=== PATIENT | male | born 1950 | race Caucasian/White ===

== ENCOUNTER 2017-04-19 05:12 | Inpatient (IN) | payer OTHER ==
[2017-04-04 09:31] VITALS: Ht 172.7 cm; Wt 100.0 kg
--- NOTE | 2017-04-04 09:55 | PAT Medication Instructions ---
Service Date Apr 04, 2017. Current Home Medication List Aspirin (Aspirin Ec), 650-975 MG PO PRN Lisinopril (Zestril), 20 MG PO QAM Metformin Hcl (Glucophage), 500 MG PO BID Multivitamin (Multivitamin), 1 TAB PO for AM [Vitamin B12], 1 TAB PO QAM [Vitamin E], 1 TAB PO QAM Medication Instructions For Your Scheduled Surgery - Hold the following medications 2 weeks prior to surgery: [Vitamin E], 1 TAB PO QAM - Hold the following medications 7 days prior to surgery per your surgeon's instructions: Aspirin (Aspirin Ec), 650-975 MG PO PRN - Hold the following medications 48 hours prior to surgery: Metformin Hcl (Glucophage), 500 MG PO BID - Hold the following medications the morning of surgery: [Vitamin B12], 1 TAB PO QAM Lisinopril (Zestril), 20 MG PO QAM Multivitamin (Multivitamin), 1 TAB PO for AM If you have any questions please call us at [phone] or [phone] or [phone]
--- NOTE | 2017-04-04 10:39 | DIAGNOSTIC IMAGING REPORT ---
CHEST 2 VIEWS ROUTINE HISTORY: 66 years-old Male PAT preoperative exam. COMPARISON: Chest radiographs 02/24/2013 TECHNIQUE: PA and lateral views of the chest FINDINGS: Cardiac silhouette is mildly enlarged. Atherosclerosis of the aorta. There is no pneumothorax, pleural effusion or focal airspace consolidation. Diaphragmatic flattening is noted with linear subsegmental bibasilar opacities. Bones of the chest are grossly intact. Advanced degenerative changes about the right shoulder. Multilevel endplate spurring of the spine. IMPRESSION: Subsegmental bibasilar atelectasis without acute process. The above report was generated using voice recognition software. It may contain grammatical, syntax or spelling errors. Electronically signed by: Scott White M.D. 04/04/2017 10:38 AM Dictated Date/Time: 04/04/2017 10:36 AM
[2017-04-04 11:25] LABS: PTT PATIENT 27.8 SECONDS (21.0-31.0)
--- NOTE | 2017-04-18 09:27 | History and Physical ---
History & Physical Date Apr 18, 2017. Chief Complaint Patient presents as a 66-year-old white male with ongoing complaints of pain about his right shoulder been unresponsive conservative therapy including injections anti-inflammatories relative rest activity modification as well as DJD presents for resurfacing Tournier and knee arthroplasty versus resurfacing arthroplasty versus total shoulder arthroplasty History of Present Illness The patient is a 66 year old male with complaints of ongoing pain was right shoulder Nourse wants to injections as well as viscous supplementations and anti -inflammatories corticosteroid injections Additional History Hepatic Disease: No Endocrine Disorder: No Kidney Disease: No Hypertension: Yes Heart Disease: No Bleeding Tendencies: No Infectious Diseases: No Allergies Coded Allergies: No Known Allergies (Verified , `, 04/04/17) Home Medications Scheduled Aspirin (Aspirin Ec), 650-975 MG PO PRN Lisinopril (Zestril), 20 MG PO QAM Metformin Hcl (Glucophage), 500 MG PO BID [Vitamin B12], 1 TAB PO QAM [Vitamin E], 1 TAB PO QAM Scheduled PRN Multivitamin (Multivitamin), 1 TAB PO for AM Physical Examination Skin: warm/dry, no rash Eyes: normal inspection, EOMI, sclerae normal ENT: normal ENT inspection, pharynx normal Head: normocephalic, atraumatic Neck: supple, no adenopathy, trachea midline Respiratory/Chest: lungs clear, normal breath sounds, no respiratory distress Cardiovascular: regular rate, rhythm, no edema, no murmur Abdomen / GI: normal bowel sounds, non tender Back: normal inspection Extremities: + pertinent finding (ongoing right shoulder pain with glenohumeral DJD) Neurologic/Psych: no motor/sensory deficits, alert, normal reflexes, oriented x 3 Diagnosis Glenohumeral DJD right shoulder Nourse wants to conservative therapy including injections anti-inflammatories relative rest activity modification Plan of Treatment Plans for right shoulder resurfacing arthroplasty versus hemiarthroplasty versus total shoulder arthroplasty pending findings at time of surgery
[2017-04-19] VITALS (9 sets, daily range): BP systolic 100–141; BP diastolic 57–84; PULSE 55–79; TEMP 36.3–37.1; O2SAT 94–97
[~2017-04-19] VITALS: Ht 172.7 cm; Wt 100.0 kg
[~2017-04-19 05:12] MED LIST: ASPI325T39 PO; GLC/500 PO; LISI-725 PO; MULT-506 PO; VITAMIN B12 PO; VITAMIN E PO
[2017-04-19] MEDS ORDERED: ROPIVACAINE 5MG/ML 30 ML 150 MG, BUPIVACAINE 0.5% MPF INJ 30 ML, EpINEphrine HCL INJ 0.... INFIL SCH ×8 (06:00)
[2017-04-19] MEDS ORDERED: GABAPENTIN 300 MG CAP PO SCH (06:00)
[2017-04-19] MEDS ORDERED: CEFAZOLIN 2000MG IV PUSH 15 ML IV SCH (06:00)
[2017-04-19] MEDS ORDERED: FAMOTIDINE 20 MG TAB PO SCH (06:00)
[2017-04-19] MEDS ORDERED: CeleBREX 200 MG CAP PO SCH (06:00)
[2017-04-19] MEDS ORDERED: ACETAMINOPHEN 500 MG TAB PO SCH (06:00)
[2017-04-19] MEDS ORDERED: METOCLOPRAMIDE HCL 10 MG TAB PO SCH (06:00)
[2017-04-19] MEDS ORDERED: DEXAMETHASONE 4 MG TAB PO SCH (06:00)
[2017-04-19] MEDS ORDERED: LACTATED RINGER'S 1000ML 1,000 ML IV SCH (06:00)
[2017-04-19] MEDS ORDERED: BUPIVACAINE 0.5 % 5 MG/1 ML PF 10ML VIAL ONE (06:34)
[2017-04-19] MEDS ORDERED: ROPIVACAINE 0.5% 5 MG/ML 30 ML VIAL ONE (06:38)
[2017-04-19] MEDS ORDERED: LIDOCAINE HCL 2% 2 ML VIAL (20MG/ML) ONE (06:45)
[2017-04-19] MEDS ORDERED: ONDANSETRON INJ 2 MG/ML 2 ML VIAL ONE (06:45)
[2017-04-19] MEDS ORDERED: MIDAZOLAM HCL 1 MG/ML 2ML VIAL ONE (06:45)
[2017-04-19] MEDS ORDERED: DEXAMETHASONE SOD INJ 4 MG/ML VIAL ONE (06:45)
[2017-04-19] MEDS ORDERED: ROCURONIUM BROMIDE 10 MG/ML 5 ML VIAL IV ONE (06:45)
[2017-04-19] MEDS ORDERED: FENTANYL CITRATE INJ 50 MCG/1 ML 2 ML VIAL ONE (06:45)
[2017-04-19] MEDS ORDERED: PROPOFOL IV EMULSION 10 MG/ML 20 ML VIAL IV ONE (06:45)
[2017-04-19] MEDS ORDERED: THROMBIN FOR SOLN 20000 UNIT KIT ONE (06:55)
[2017-04-19] MEDS ORDERED: BACITRACIN 50000 UNIT VIAL ONE (06:55)
[2017-04-19] MEDS: TRANEXAMIC ACID INJ 1,000 MG in SYRINGE 0 ML IV SCH ×2 (07:00→11:58)
--- NOTE | 2017-04-19 07:12 | History & Physical Bridge Note ---
H&P Re-Evaluation Bridge Note: I have examined the patient, reviewed the History & Physical and in the interval since the performance of the History & Physical I have noted the following changes of clinical significance: No changes noted
--- NOTE | 2017-04-19 07:20 | History & Physical Bridge Note ---
H&P Re-Evaluation Bridge Note: I have examined the patient, reviewed the History & Physical and in the interval since the performance of the History & Physical I have noted the following changes of clinical significance: Please note the procedure is right shoulder arthroplasty
[2017-04-19] MEDS ORDERED: EpHEDrine SULFATE INJ 50 MG/ML AMP ONE (07:39)
[2017-04-19] MEDS ORDERED: ATROPINE SULFATE 0.1 MG/ML 5ML SYR IV PRN (07:45)
[2017-04-19] MEDS ORDERED: FENTANYL CITRATE INJ 50 MCG/1 ML 2 ML VIAL IV PRN (07:45)
[2017-04-19] MEDS ORDERED: ONDANSETRON INJ 2 MG/ML 2 ML VIAL IV PRN ×2 (07:45→09:15)
[2017-04-19] MEDS ORDERED: EpHEDrine SULFATE INJ 50 MG/ML AMP IV PRN (07:45)
[2017-04-19] MEDS ORDERED: PHENYLEPHRINE 100MCG/ML 5ML SYR ONE (07:50)
[2017-04-19] MEDS ORDERED: NEOSTIGMINE METHYLSULFATE 5 MG/5 ML SYR ONE (08:44)
[2017-04-19] MEDS ORDERED: GLYCOPYRROLATE INJ 0.2 MG/ML VIAL ONE (08:44)
--- NOTE | 2017-04-19 08:49 | [facility] Post Operative Brief Note ---
Immediate Operative Summary Operative Date Apr 19, 2017. Pre-Operative Diagnosis Glenohumeral degenerative joint disease right shoulder Post-Operative Diagnosis Glenohumeral degenerative joint disease right shoulder Procedure(s) Performed Right Shoulder Arthroplasty Resurfacing Surgeon Dr. Lencho Wiley Service Promoter Salesperson Surgeon(s) Chi To PA-C Estimated Blood Loss 15ml Findings Consistent with Post-Op Diagnosis Specimens None per surgeon Drains None Anesthesia Type General Complication(s) none Disposition Disposition: Recovery Room / PACU
--- NOTE | 2017-04-19 08:52 | [facility] Operative Report ---
Operative Report Operative Date Apr 19, 2017. Pre-Operative Diagnosis Glenohumeral degenerative joint disease right shoulder Post-Operative Diagnosis Glenohumeral degenerative joint disease right shoulder Procedure(s) Performed Right Shoulder Arthroplasty Resurfacing utilizing Tournier resurfacing hemiarthroplasty size 46 x 17 mm press-fit Surgeon Dr. Lencho Wiley Pierce And Shave Press Operator Surgeon(s) Chi To PA-C Estimated Blood Loss 15ml Findings Patient presents with glenohumeral arthritis primarily involving the the humeral head with marginal osteophytes the procedure resurfacing was noted gave excellent conformity of reduction excellent stability range of motion anatomic range Specimens None per surgeon Drains None Anesthesia Type General Complication(s) none Disposition Recovery Room / PACU Indications Patient presents with ongoing arthritic complaints and DJD about the right shoulder Nourse wants to conservative therapy including injections viscous supplementations relative rest activity modification patient presents for shoulder resurfacing arthroplasty Description of Procedure After after proper prepping and draping the right shoulder region and injured ( oval incision was made the cephalic vein was protected all times the pectoral was developed anterior subscapularis surface was reflected off of the humeral head and the joint was evaluated the glenoid was evaluated in good condition he recommended marginal osteophytes around the entire humeral head was were excised the Yaron eburnated bone the head was sized to a 46 x 17 and was subsequently reamed gave excellent stability after reduced loser as well as sterile saline solution via pulsatile lavage 3 #5 FiberWire was replaced through transosseous bone tunnels placed through the anterior humeral head for later repair of the subscapularis tendon after trialing process instability status post glenoid incision made the glenoid was left as is subsequently the resurfacing arthroplasty was press-fit into position after patient placing the 5 -0 FiberWire sutures anterior subscapularis tendon and supraspinatus rotator interval was repaired as well utilizing #0 Ethibond was irrigated with copious less of sterile saline solution the pectoral was closed with #2-0 Vicryl subcutaneous screws with a 2-0 Vicryl skin was closed skin clips a sterile compressive dressing was placed as well as a shoulder immobilizer patient states recovery in stable condition operative report dictated by Saurabh YEUNG was necessary for prepping draping retraction and closure defect is subcutaneous and skin was necessary for the case I attest to the content of the Intraoperative Record and any orders documented therein. Any exceptions are noted below.
[2017-04-19] MEDS ORDERED: OXYCODONE HCL IR 5 MG TAB (IMMEDIATE RELEASE) PO PRN (09:15)
[2017-04-19] MEDS ORDERED: MAGNESIUM HYDROXIDE SUSP 30 ML UDC PO PRN (09:15)
[2017-04-19] MEDS ORDERED: BISACODYL 10 MG SUPP PR PRN (09:15)
[2017-04-19] MEDS ORDERED: MoRPHine SULFATE 2 MG/ML CARP IV PRN (09:15)
[2017-04-19] MEDS ORDERED: SOD PHOSPHATE/SOD BIPHOSPHATE ENEMA 132 ML BTL PR PRN (09:15)
[2017-04-19] MEDS ORDERED: ALUMINUM/MAGNESIUM SUSP 30 ML UDC PO PRN (09:15)
[2017-04-19] MEDS ORDERED: CEFAZOLIN IV 2,000 MG in DEXTROSE 5% 50ML 50 ML IV SCH (09:15)
[2017-04-19] MEDS ORDERED: ZOLPIDEM TARTRATE 5 MG TAB PO PRN (09:15)
[2017-04-19] MEDS ORDERED: LABETALOL HCL IV 5 MG/ML 20ML IV ONE (09:19)
--- NOTE | 2017-04-19 09:45 | DIAGNOSTIC IMAGING REPORT ---
R SHOULDER MIN 2 VIEWS ROUTINE CLINICAL HISTORY: Post shoulder surgery shoulder arthroplasty COMPARISON: None. DISCUSSION: Anatomic alignment status post right shoulder hemiarthroplasty. Good contact between the humeral prosthetic and underlying bone. Expected soft tissue postoperative change. IMPRESSION: Anatomic alignment status post right shoulder arthroplasty. The above report was generated using voice recognition software. It may contain grammatical, syntax or spelling errors. Electronically signed by: Chi Parada M.D. 04/19/2017 9:43 AM Dictated Date/Time: 04/19/2017 9:43 AM
--- NOTE | 2017-04-19 10:00 | Anesthesiology Progress Note ---
Anesthesia Post Op Note Date & Time Apr 19, 2017 at 10:00 Vital Signs Pain Intensity: 0 Vital Signs Past 12 Hours Date Time Temp Pulse Resp B/P (MAP) Pulse Ox O2 Delivery O2 Flow Rate FiO2 04/19/17 09:55 36.0 55 16 100/60 96 Nasal Cannula 2 04/19/17 09:45 59 16 101/61 96 Nasal Cannula 2 04/19/17 09:35 56 16 105/65 96 Oxymask 10 04/19/17 09:25 58 16 109/66 96 Oxymask 10 04/19/17 09:15 36.0 65 16 111/68 96 Oxymask 10 04/19/17 05:52 37.1 70 16 141/84 97 Room Air Notes Mental Status: alert / awake / arousable, participated in evaluation Pt Amnestic to Procedure: Yes Nausea / Vomiting: adequately controlled Pain: adequately controlled Airway Patency, RR, SpO2: stable & adequate BP & HR: stable & adequate Hydration State: stable & adequate Anesthetic Complications: no major complications apparent
[2017-04-19] MEDS ORDERED: MoRPHine SULFATE 4 MG/ML 1 ML CARP\\VIAL IV PRN (10:15)
[2017-04-19] MEDS ORDERED: PHARMACY GLYCEMIC MGMT CONSULT PRN (10:30)
[2017-04-19] MEDS ORDERED: MoRPHine SULFATE 10 MG/ML CARP/VIAL IV PRN (10:30)
[2017-04-19] MEDS ORDERED: INSULIN GLARGINE SOLOSTAR 100 UNITS/ML 3 ML PEN SC ONE (11:00)
--- NOTE | 2017-04-19 11:07 | Pharmacy Progress Note ---
Glycemic Control Intl Consult Date of Service Apr 19, 2017. Scope Glycemic Pharmacist consulted by Stefan To PA-C on 04/19/17 for glycemic control and to write orders per [facility] inpatient glycemic control protocol Objective Weight (Kilograms): 100.2 Accuchecks BSG (last 24hrs): Test 04/19/17 05:46 04/19/17 09:22 Bedside Glucose 148 mg/dl (70-99) 215 mg/dl (70-99) Recent Pertinent Medications Outpatient Anti-diabetic Regimen: * metformin 500 mg BID * A1c unknown Risk Factors for Insulin Resistance: * Steroids: ortho + dexamethasone 8 mg PO + dexamethasone 4 mg IV pre-op * Recent Surgery: POD #0 R shoulder arthroplasty vs. resurfacing * Diet: T2DM Assessment & Plan ASSESSMENT: * 66 yr old T2DM male admitting for R shoulder surgery. * Pt is maintained on oral antidiabetic agents as an outpatient with unknown glycemic control. * Will hold oral agents for admission and utilize SQ basal bolus insulin regimen which is the recommended regimen for inpatient glycemic control. * Will initiate weight based insulin dosing for insulin nathalie patient and titrate based on BSG trends. PLAN FOR INPATIENT GLYCEMIC CONTROL: * Holding outpatient oral diabetes medications * Basal insulin * Lantus 34 units SQ now, then Lantus 0-17 units SQ HS * 0 units if BSG < 110, 9 units if BSG 110-140, 17 units if BSG > 140 * Correctional Insulin * NOVOLOG per scale ACHS or Q6hrs while NPO * Goal Range: Low 110 mg/dL - High 140 mg/dL * Correction Factor: 15 mg/dL/unit * Nutritional / Prandial insulin per carb ratio of 1 unit per 5 grams CHO consumed * Add overnight checks with coverage for POD#0 * A1c ordered * Please note that the plan above was derived based on current level of insulin resistance and hospital stress. These recommendations are appropriate for inpatient admission only. Plan of care upon discharge will need to be reassessed to avoid potential outpatient hypo/hyperglycemia. Thank you.
[2017-04-19] MEDS ORDERED: GLUCOSE 40% GEL 15 GM TUBE PO PRN (11:15)
[2017-04-19] MEDS ORDERED: GLUCAGON FOR INJ 1 MG VIAL SQ PRN (11:15)
[2017-04-19] MEDS ORDERED: DEXTROSE 50% 50 ML SYR IV PRN (11:15)
[2017-04-19] MEDS ORDERED: GLUCOSE 10 TABS/TUBE PO PRN (11:15)
[2017-04-19] MEDS: POTASSIUM CHLORIDE INJ 10 MEQ in SODIUM CHLORIDE 0.9% 1000ML 1,000 ML IV SCH ×2 (11:59→22:25)
[2017-04-19] MEDS: KETOROLAC TROMETHAMINE 15 MG/ML VIAL IV. SCH ×2 (12:04→17:58)
[2017-04-19] MEDS: ACETAMINOPHEN 500 MG TAB PO SCH ×2 (13:17→22:26)
[2017-04-19] MEDS: INSULIN ASPART 100 UNITS/ML 3 ML PEN SC SCH ×3 (13:20→21:03)
[2017-04-19] MEDS: CEFAZOLIN IV 2,000 MG in SYRINGE 0 ML IV SCH (16:43)
--- NOTE | 2017-04-19 19:04 | Discharge Instructions ---
Discharge Instructions Date of Service Apr 19, 2017. Admission Reason for Admission: Right Shoulder Osteoarthritis Discharge Discharge Diagnosis / Problem: right shoulder hemiarthroplasty Discharge Goals Goal(s): Decrease discomfort, Improve function, Increase independence Activity Recommendations Activity Limitations: as noted below . Instructions / Follow-Up Instructions / Follow-Up ACTIVITY RECOMMENDATIONS: SELF CARE INSTRUCTIONS AFTER SHOULDER RESURFACING ARTHROPLASTY A. You may do daily exercises as taught in physical therapy while in hospital. No lifting with the operative arm. Please schedule your outpatient physical therapy appointment to begin within 2-3 days after leaving the hospital. Specific restrictions will be written on your physical therapy prescription that is provided to you. B. You are to wear your sling/immobilizer at all times EXCEPT when performing your daily exercises, participating in physical therapy and for hygiene purposes. C. You may perform dry, daily dressing changes. Please keep your incision covered. You may shower 48 hours after surgery. Do not apply soap or any ointment/ lotions directly over incision. Do not soak incision in bath tub/swimming pool. D. You may use ice as needed to operative shoulder. SPECIAL CARE INSTRUCTIONS: MEDICATION INSTRUCTIONS: *It is recommended you take Aspirin 325mg daily for four weeks post-op. VERY IMPORTANT TO READ AND REVIEW A. There are a few signs you need to watch for after you are home. Call [facility] at [phone] if you experience any of the followin. Increased severe shoulder pain. Some pain is expected especially when you exercise. 2. Increased swelling in you shoulder or arm; pain or swelling in either upper extremity. 3. Any fluid drainage from the incision. 4. Shortness of breath or chest pain. B. Please call [facility] at [phone] if you have any questions or concerns about your operation or recovery. C. Call your physician if: 1. Temperature is greater than 101 degrees (F). 2. Pain is not relieved by prescribed pain medications. 3. Increase drainage or redness from incision. 4. Unanswered questions or concerns. FOLLOW UP VISIT: Please call [facility] at [phone] to schedule a follow up appointment with Dr. Wiley or his PA in 12-14 days from your surgery date. Current Hospital Diet Patient's current hospital diet: Diabetes Type 2 Diet Discharge Diet Recommended Diet: Diabetes Type 2 Diet Procedures Procedures Performed: Right Shoulder Arthroplasty Resurfacing utilizing Tournier resurfacing hemiarthroplasty size 46 x 17 mm press-fit Pending Studies Studies pending at discharge: no Medical Emergencies . Who to Call and When: Medical Emergencies: If at any time you feel your situation is an emergency, please call 911 immediately. . Non-Emergent Contact Non-Emergency issues call your: Primary Care Provider, Surgeon . "Provider Documentation" section prepared by Chi To. . VTE Core Measure Inpt VTE Proph given/why not?: Treatment not indicated [place] Drug Monitoring Program Search Results: patient reviewed within database, no issues identified
[2017-04-19] MEDS ORDERED: INSULIN GLARGINE SOLOSTAR 100 UNITS/ML 3 ML PEN SC SCH (21:00)
[2017-04-19] MEDS: DOCUSATE SODIUM 100 MG CAP PO SCH (21:00)
[2017-04-19] MEDS ORDERED: SENNA 8.6 MG TAB PO SCH (21:00)
[2017-04-20] MEDS: CEFAZOLIN IV 2,000 MG in SYRINGE 0 ML IV SCH (00:03)
[2017-04-20] MEDS: KETOROLAC TROMETHAMINE 15 MG/ML VIAL IV. SCH ×2 (00:03→06:00)
[2017-04-20 03:44] VITALS: BP 117/72; PULSE 69; TEMP 36.5; O2SAT 95
[2017-04-20] MEDS: INSULIN ASPART 100 UNITS/ML 3 ML PEN SC SCH ×3 (03:59→09:00)
[2017-04-20] MEDS: ACETAMINOPHEN 500 MG TAB PO SCH (05:58)
[2017-04-20 06:43] LABS: HEMATOCRIT 36.6 % (42-52); HEMOGLOBIN 12.3 g/dL (14.0-18.0); MEAN CELL VOLUME 89.9 fL (80-100); MEAN CORPUSCULAR HEMOGLOBIN 30.2 pg (25-34); MEAN CORPUSCULAR HGB CONC 33.6 g/dl (32-36); MEAN PLATELET VOLUME 9.6 fL (7.4-10.4); PLATELET COUNT 223 K/uL (130-400); RED CELL DISTRIBUTION WIDTH CV 13.6 % (11.5-14.5); RED CELL DISTRIBUTION WIDTH SD 44.9 fL (36.4-46.3); WHITE BLOOD COUNT 9.83 K/uL (4.8-10.8)
[2017-04-20 07:00] LABS: CALCIUM 8.9 mg/dl (8.5-10.1); CREATININE 1.15 mg/dl (0.60-1.40); POTASSIUM 3.9 mmol/L (3.5-5.1)
[2017-04-20 07:02] LABS: HEMOGLOBIN A1C 8.8 % (4.5-5.6)
--- NOTE | 2017-04-20 07:05 | Orthopedic Progress Note ---
Orthopedic Progress Note Date of Service Apr 20, 2017. Subjective Post OP Day: 1 (Right Shoulder Arthroplasty Resurfacing) Reports: feeling well, pain controlled w PO medications, Denies: complaints, chest pain, SOB, nausea / vomiting, light headedness, calf pain Objective N/V intact, capillary refill less than 2 sec., dressing C/D/I, A&O x3 Date Time Temp Pulse Resp B/P (MAP) Pulse Ox O2 Delivery O2 Flow Rate FiO2 04/20/17 03:44 36.5 69 15 117/72 (87) 95 Room Air 04/19/17 23:50 36.4 62 16 118/72 (87) 95 Room Air 04/19/17 20:00 Room Air 04/19/17 19:45 36.5 62 18 124/70 (88) 94 Room Air 04/19/17 15:10 Room Air 04/19/17 15:10 36.4 65 16 116/74 (88) 96 Nasal Cannula 2.0 04/19/17 13:07 36.3 74 16 100/57 (71) 97 Nasal Cannula 2.0 04/19/17 12:08 79 18 104/66 (79) 97 Nasal Cannula 5.0 78 04/19/17 11:02 36.4 55 18 106/65 (79) 95 Nasal Cannula 2.0 04/19/17 10:29 36.4 59 16 111/70 (84) 97 Nasal Cannula 2.0 04/19/17 10:05 36.5 18 103/62 (76) 97 Nasal Cannula 2.0 04/19/17 10:05 Nasal Cannula 04/19/17 09:59 36.5 04/19/17 09:55 36.0 55 16 100/60 96 Nasal Cannula 2 04/19/17 09:45 59 16 101/61 96 Nasal Cannula 2 04/19/17 09:35 56 16 105/65 96 Oxymask 10 04/19/17 09:25 58 16 109/66 96 Oxymask 10 04/19/17 09:15 36.0 65 16 111/68 96 Oxymask 10 Laboratory Results 24 Hours: Test 04/20/17 06:26 Hematocrit 36.6 % Hemoglobin 12.3 g/dL Prothromb Time International Ratio 1.0 Prothrombin Time 10.7 SECONDS Assessment & Plan Assessment: POD #1 s/p Right Shoulder Arthroplasty Resurfacing -PT/OT -plan for d/c home with OPPT later today DM2 Discharge Planning Discharge Planning: home with oppt DVT Prophylaxis: TEDs, SCDs, ASA Therapy: Physical Therapy
[2017-04-20] MEDS ORDERED: ACET-24 PO (07:07)
[2017-04-20] MEDS ORDERED: RXC5 PO (07:07)
[2017-04-20] MEDS ORDERED: CLB200 PO (07:07)
--- NOTE | 2017-04-20 07:10 | Discharge Summary ---
Orthopedic Discharge Summary Admission Date/Reason Apr 19, 2017 at 06:50 Right Shoulder Osteoarthritis. Discharge Date/Disposition Apr 20, 2017 Home Diagnosis Principal Diagnosis: right shoulder osteoarthritis Procedure(s) Performed Right Shoulder Arthroplasty Resurfacing Consultations NONE Medication Reconciliation New Medications: Celecoxib (Celebrex) 200 Mg Cap 200 MG PO BID for 30 Days, #60 CAP Acetaminophen (Sb Non-Aspirin Extra Stre) 500 Mg Tab 1000 MG PO Q8, #63 TAB Oxycodone HCl (Oxycodone HCl) 5 Mg Tab 5-10 MG PO Q4H PRN for Pain, #60 TAB Continued Medications: Aspirin (Aspirin Ec) 325 Mg Tab 650-975 MG PO PRN Lisinopril (Zestril) 20 Mg Tab 20 MG PO QAM, TAB Metformin Hcl (Glucophage) 500 Mg Tab 500 MG PO BID, TAB Multivitamin (Multivitamin) Tab 1 TAB PO PRN for AM, TAB [Vitamin B12] () 1 TAB PO QAM [Vitamin E] () 1 TAB PO QAM Admission Physical Exam As per Admitting History & Physical. Hospital Course Patient was a same day admission after undergoing a successful Right shoulder resurfacing, he tolerated the procedure well. Post-operatively, his activity was progressed and well tolerated. Please refer to daily progress notes and PT notes for complete details. After exam on 04/20/17, patient felt to be stable for discharge home with OPPT @ [facility]. Patient will f/u in the office in 2 weeks for further evaluation including x-rays and incision check, sooner if having any issues or concerns. Below are pertinent labs/studies during their hospital stay: Last Resulted CBC 04/20/17 06:26 Last Resulted BMP 04/20/17 06:26 Last Vital Signs Documentation Date Time Temp Pulse Resp B/P (MAP) Pulse Ox O2 Delivery O2 Flow Rate FiO2 04/20/17 03:44 36.5 69 15 117/72 (87) 95 Room Air 04/19/17 15:10 2.0 Discharge Instructions ACTIVITY RECOMMENDATIONS: SELF CARE INSTRUCTIONS AFTER SHOULDER RESURFACING A. You may do daily exercises as taught in physical therapy while in hospital. No lifting with the operative arm. Please schedule your outpatient physical therapy appointment to begin within 2-3 days after leaving the hospital. Specific restrictions will be written on your physical therapy prescription that is provided to you. B. You are to wear your sling/immobilizer at all times EXCEPT when performing your daily exercises, participating in physical therapy and for hygiene purposes. C. You may perform dry, daily dressing changes. Please keep your incision covered. You may shower 48 hours after surgery. Do not apply soap or any ointment/ lotions directly over incision. Do not soak incision in bath tub/swimming pool. D. You may use ice as needed to operative shoulder. SPECIAL CARE INSTRUCTIONS: MEDICATION INSTRUCTIONS: *It is recommended you take Aspirin 325mg daily for four weeks post-op. VERY IMPORTANT TO READ AND REVIEW A. There are a few signs you need to watch for after you are home. Call [facility] at [phone] if you experience any of the followin. Increased severe shoulder pain. Some pain is expected especially when you exercise. 2. Increased swelling in you shoulder or arm; pain or swelling in either upper extremity. 3. Any fluid drainage from the incision. 4. Shortness of breath or chest pain. B. Please call [facility] at [phone] if you have any questions or concerns about your operation or recovery. C. Call your physician if: 1. Temperature is greater than 101 degrees (F). 2. Pain is not relieved by prescribed pain medications. 3. Increase drainage or redness from incision. 4. Unanswered questions or concerns. D. DERMABOND Prineo- This is a mesh tape dressing that is covered with glue. It should remain in place until the incision is properly healed, usually 10-14 days. This dressing is designed to naturally slough off. You may trim the excess mesh tape as it peels off. Incision may be briefly wet in a shower. Dry immediately by blotting with a clean, dry towel. Do not bath or swim until instructed by your doctor. Do not scratch, rub, or pick at the dressing. Do not apply any topical ointments or lotions until dressing is completely removed and/or instructed by your doctor. There may be a small piece of suture material at one end of your incision. Do not pull or trim this. If it is bothersome or catching on clothing, you may cover it with a band-aid. FOLLOW UP VISIT: Please call [facility] at [phone] to schedule a follow up appointment with Dr. Wiley or his PA in 12-14 days from your surgery date.
[2017-04-20] MEDS: POTASSIUM CHLORIDE INJ 10 MEQ in SODIUM CHLORIDE 0.9% 1000ML 1,000 ML IV SCH (07:27)
[2017-04-20 08:00] VITALS: BP 120/72; PULSE 66; TEMP 37; O2SAT 90
[2017-04-20 08:49] VITALS: O2SAT 90
[2017-04-20] MEDS: DOCUSATE SODIUM 100 MG CAP PO SCH (08:52)
[2017-04-20] MEDS ORDERED: TOCOPHERYL, DL-ALPHA 400 INTER.UNIT CAP PO SCH (09:00)
[2017-04-20] MEDS ORDERED: INSULIN GLARGINE SOLOSTAR 100 UNITS/ML 3 ML PEN SC SCH ×2 (09:00)
[2017-04-20] MEDS ORDERED: MULTIVITAMIN TAB PO SCH (09:00)
[2017-04-20] MEDS ORDERED: LISINOPRIL 20 MG TAB PO SCH (09:00)
[2017-04-20] MEDS ORDERED: ASPIRIN 325 MG ECTAB PO SCH (09:00)
[2017-04-20] MEDS ORDERED: CYANOCOBALAMIN 500 MCG TAB (VIT B-12) PO SCH (09:00)
[2017-04-20 09:26] VITALS: BP 120/72; PULSE 66; TEMP 37; O2SAT 90
--- NOTE | 2017-04-20 10:48 | Anesthesiology Progress Note ---
Anesthesia Post Op Note Date & Time Apr 20, 2017 at 10:48 Vital Signs Pain Intensity: 0.0 Vital Signs Past 12 Hours Date Time Temp Pulse Resp B/P (MAP) Pulse Ox O2 Delivery O2 Flow Rate FiO2 04/20/17 09:26 37.0 66 18 90 Room Air 04/20/17 08:49 90 Room Air 04/20/17 08:00 37.0 66 18 120/72 (88) 90 Room Air 04/20/17 07:20 Room Air 04/20/17 03:44 36.5 69 15 117/72 (87) 95 Room Air 04/19/17 23:50 36.4 62 16 118/72 (87) 95 Room Air Notes Mental Status: alert / awake / arousable, participated in evaluation Pt Amnestic to Procedure: Yes Nausea / Vomiting: adequately controlled Pain: adequately controlled Airway Patency, RR, SpO2: stable & adequate BP & HR: stable & adequate Hydration State: stable & adequate Anesthetic Complications: no major complications apparent
== END 2017-04-20 11:11 | disposition home or self-care (01) | DRG 483 ==
LOC: C.ACU 05:12 → C.3E 06:50 → ENRESERV 09:30
PROVIDERS: ADMIT Orthopaedic Surgery; ATTEND Orthopaedic Surgery
PROC: 0RRJ0J6 Replacement of Right Shoulder Joint with Synthetic Substitute, Humeral Surface, Open Approach (ICD-10-PCS; principal; 2017-04-19 07:15)
DX: M19.011 Primary osteoarthritis, right shoulder (principal); Z79.82 Long term (current) use of aspirin; Z79.84 Long term (current) use of oral hypoglycemic drugs; Z79.899 Other long term (current) drug therapy